=== PATIENT | female | born 1940 | race Caucasian/White ===

== ENCOUNTER → 2018-11-06 | Outpatient (CLI) | payer MEDICARE, OTHER ==
[2018-11-06 14:56] LABS: HCT 44.2 % (34.0-46.0); HGB 15.1 gm/dL (11.4-16.0); MCH 32.5 pg (25.0-35.0); MCHC 34.2 g/dL (31.0-37.0); Mean Platelet Volume 7.6; Platelet Count 248 k/uL (150-450); RBC 4.65 m/uL (3.80-5.40); RDW 14.5 % (11.5-15.5); WBC 7.4 k/uL (3.8-10.6)
[2018-11-06 14:57] LABS: Appearance,Urine Clear (Clear); Bacteria,Urine Occasional /hpf; Bilirubin,Urine Negative (Negative); Blood,Urine Negative (Negative); Color,Urine Yellow; Glucose,Urine (UA) Negative (Negative); Ketones,Urine Negative (Negative); Leukocyte Esterase,Urine Large (Negative); Mucus,Urine Rare /hpf; Nitrite,Urine Positive (Negative); Protein,Urine Negative (Negative); RBC,Urine 1 /hpf (0-5); Specific Gravity,Urine 1.008 (1.001-1.035); Squamous Epithelial Cell,Urine <1 /hpf (0-4); Urobilinogen,Urine <2.0 mg/dL (<2.0); WBC,Urine 15 /hpf (0-5)
[2018-11-06 15:03] LABS: INR 0.9 (<1.2); Partial Thromboplastin Time 23.3 sec (22.0-30.0)
[2018-11-06 15:07] LABS: ALT 21 U/L (9-52); AST 23 U/L (14-36); African American GFR (CKD) >90 (>60 ml/min/1.73 sqM); Alkaline Phosphatase 147 U/L (38-126); Anion Gap 8 mmol/L; Blood Urea Nitrogen 18 mg/dL (7-17); Calcium 9.1 mg/dL (8.4-10.2); Carbon Dioxide 32 mmol/L (22-30); Chloride 99 mmol/L (98-107); Glucose 138 mg/dL (74-99); Non-African American GFR(CKD) 84 (>60 ml/min/1.73 sqM); Potassium 3.9 mmol/L (3.5-5.1); Sodium 139 mmol/L (137-145); Total Bilirubin 0.3 mg/dL (0.2-1.3); Total Protein 6.9 g/dL (6.3-8.2)
== END | disposition home or self-care (01) ==
LOC: LABPAT 13:36
PROVIDERS: ATTEND Orthopaedic Surgery
DX: Z01.812 Encounter for preprocedural laboratory examination (principal); Z79.01 Long term (current) use of anticoagulants
CPT/HCPCS: 36415; 80053; 81001; 85027; 85610; 85730; 86850; 86900; 86901; 87070

== ENCOUNTER 2018-11-17 05:34 | Inpatient (IN) | payer MEDICARE, OTHER ==
[2018-11-11 13:27] VITALS: BMI 33.6
[~2018-11-17 05:34] MED LIST: ACETAMINOPHEN TAB 500 MG TAB PO ONE; DEXAMETHASONE SOD PHOSPHATE 10 MG/ML 1 ML VIAL IV ONE; GABAPENTIN 300 MG CAP PO ONE; LIDOCAINE 1% 20 ML VIAL (10MG/ML) FOR IV START INTRADERMA PRN; MELOXICAM 7.5 MG TAB PO ONE; MIDAZOLAM 2 MG/2 ML VIAL IV PRN; ONDANSETRON 4 MG/2 ML VIAL IVP ONE; SCOPOLAMINE 1.5MG/72HR PATCH TRANSDERM ONE; TRANEXAMIC ACID 1,000 MG in SODIUM CHLORIDE 0.9% 100 ML IVPB ONE
[2018-11-17] MEDS ORDERED: ROPIVACAINE 246.25 MG, EPINEPHrine 0.5 MG, KETOROLAC 30 MG, cloNIDine HCL/PF 80 MCG, WA... MISCELLANE ONE ×10 (06:00→06:07)
[2018-11-17] MEDS: LACTATED RINGERS 1,000 ML IV SCH (06:12)
[2018-11-17] MEDS ORDERED: DIAZEPAM 5 MG TAB PO PRN (06:53)
[2018-11-17] MEDS ORDERED: ONDANSETRON 4 MG/2 ML VIAL IVP PRN (06:53)
[2018-11-17] MEDS ORDERED: MAGNESIUM HYDROXIDE 2,400 MG/10 ML CUP PO PRN (06:53)
[2018-11-17] MEDS ORDERED: HYDROmorphone 0.5 MG/0.5 ML SYRINGE IVP PRN ×3 (06:53)
[2018-11-17] MEDS ORDERED: NALOXONE 0.4 MG/ML 1 ML VIAL IV PRN (06:53)
[2018-11-17] MEDS ORDERED: hydrOXYzine PAMOATE 25 MG CAP PO PRN (06:53)
[2018-11-17] MEDS ORDERED: HYDROcodone/APAP 5-325MG 1 EACH TAB PO PRN (06:53)
[2018-11-17] MEDS ORDERED: SODIUM CHLORIDE 0.9% IRRIG 1,000 ML BTL IRRIGATION ONE (06:54)
[2018-11-17] MEDS ORDERED: SODIUM CHLORIDE 0.9% 100 ML BAG ONE (06:54)
[2018-11-17] MEDS ORDERED: MIDAZOLAM 2 MG/2 ML VIAL ONE (06:54)
[2018-11-17] MEDS ORDERED: HEPARIN SODIUM,PORCINE 10,000 UNIT/ML 1 ML VIAL ONE (06:54)
[2018-11-17] MEDS ORDERED: TRANEXAMIC ACID 1,000 MG/10 ML VIAL ONE (06:54)
[2018-11-17] MEDS ORDERED: PROPOFOL 10 MG/ML 20 ML VIAL IV ONE (06:54)
[2018-11-17] MEDS ORDERED: diphenhydrAMINE 50 MG/ML 1 ML VIAL ONE (06:54)
[2018-11-17] MEDS ORDERED: PHENYLEPHRINE-0.9% NACL SYG 1 MG/10 ML SYRINGE ONE (06:54)
[2018-11-17] MEDS ORDERED: ceFAZolin 3,000 MG in SODIUM CHLORIDE 0.9% IRRIGATIO 3,000 ML IRRIGATION ONE (06:59)
--- NOTE | 2018-11-17 08:36 | P.OP ---
Date of Procedure: 11/17/18 Preoperative Diagnosis: Severe osteoarthritis left hip Postoperative Diagnosis: Severe osteoarthritis left hip Procedure(s) Performed: Left total hip arthroplasty with a direct anterior approach Implants: Fuentes and nephew Polarstem size 2 standard Fuentes & Nephew R3, 3 hole acetabular shell, 48 mm Fuentes & Nephew reflection 6.5 mm cancellus screw, 20 mm 2 Fuentes & Nephew R3, XLPE 20 acetabular liner Fuentes & Nephew Oxinium femoral head 32 m, +0 All components were press-fit. The articulation is Oxinium on polyethylene. Anesthesia: spinal Surgeon: Judson Duncan Toe Laster #1: Radha Donis Estimated Blood Loss (ml): 150 (67 mL returned with Cell Saver) Pathology: other (Femoral head) Condition: stable Disposition: PACU Indications for Procedure: After failure of conservative treatment we discussed the surgical and nonsurgical treatment options at length. Patient wishes to proceed with a total hip arthroplasty with a direct anterior approach. Complications specific to this procedure were discussed at length, including but not limited to infection, leg length discrepancy, dislocation, and nerve injury. Patient is aware of all these complications and informed consent was obtained Operative Findings: The operative findings are consistent with severe osteoarthritis of the left hip Description of Procedure: Patient was seen and evaluated in the preoperative area, consent was reviewed, and the surgical site was marked with a skin marker. Patient was then brought to the operating room and given prophylactic antibiotics intravenously. 1 g of Tranexamic acid was also given. A spinal anesthetic was administered by the anesthesia department. The patient was then placed on the Mcgill table with the bony prominences well-padded. The hip area was then prepped and draped in usual sterile fashion. A universal timeout was then performed, which confirmed the patient's name, surgical site, ALLERGIES, and procedure being performed. Next the incision site was located at 1 cm distal and 1 cm lateral to the anterior superior iliac spine. The skin and subcutaneous tissues were sharply incised. Incision was carefully dissected down to the fascia overlying the tensor fascia sathya muscle. This fascia was then incised in line with the incision. Next, using blunt finger dissection, the tensor fascia sathya muscle was dissected off its investing fascia. The muscle was then carefully retracted laterally with a cobra retractor over the lateral neck of the femur. Next, the circumflex vessels were identified and cauterized using the AquaMantis device. The anterior hip capsule was then exposed. The capsule was then opened and an inverted T fashion. Cobra retractors were then placed intracapsularly. The proximal femur was then visu alized. The femoral neck was then osteotomized appropriate level above the lesser trochanter. Small amount of traction was placed with the Mcgill table. A small wedge of bone was then removed from the remaining femoral head. Next, using a corkscrew femoral head was easily removed from the acetabulum. On gross visual inspection, the femoral head had complete loss of articular cartilage in multip le periarticular osteophytes. Attention was then turned to the acetabulum. the acetabulum was exposed and any remaining labrum was excised. Sequential reaming of the acetabulum was performed using fluoroscopic guidance. When the appropriate size was reached, a trial was then placed. The position and fit of the trial was checked with fluoroscopy. The trial was then removed. Then, using fluoroscopic guidance, the final implant was impacted at 20 of anteversion and 40 of abduction, and fully seated in the acetabulum. 2 screws were then placed in the acetabulum. Again fluoroscopy was used to check position of the screws. Next, the liner was then impacted, with a 20 elevated liner located in the anterior superior quadrant. Component locking was confirmed. Attention was then directed to the femur. With the aid of the Mcgill table, the femur was externally rotated to approximately 130, extended, and abducted under the opposite leg. A side hook was then placed under the proximal femur, and the side hook elevator was used to elevate the proximal femur. Retractors were then placed. A capsular release was performed, as well as a release of the conjoined tendon, which afforded excellent visualization of the proximal femur. Next, a box osteotome was used to lateralize the proximal femur. A regional merchandising manager was then used to locate the femoral canal. Sequential broaching was then performed with appropriate size which afforded excellent fixation in the proximal femur. A trial was then placed with appropriate head and neck, and the hip was gently reduced with the aid of the Mcgill table. Fluoroscopy was then used to check position of the components, as well as to ensure equal leg lengths. The hip was then gently dislocated and the trials were then removed. Final implants were then impacted and the hip was again reduced. Final fluoroscopic x-rays confirmed that the components were in anatomic position, as well as equal leg lengths. The hip was also taken through range of motion, and found to be stable. The hip was then copiously irrigated with antibiotic solution with pulsatile lavage. The hip was then irrigated with Irrisept solution. The soft tissues were then injected with a ropivacaine solution, which consisted of 246.25 mg of ropivacaine, 0.5 mg of epinephrine, 30 mg of Toradol, 80 g of clonidine, and 48.45 mL of sterile water, for a total of 100 mL of fluid injected. A second dose of 1 g of Tranexamic acid was also given. the fascia was then closed with 2-0 strata fix suture. The subcutaneous tissue was closed with 3-0 Vicryl. The subcuticular tissue was closed with 3-0 strata fix suture. The skin was then closed with Dermabond glue and a sterile silver dressing. The patient was then transferred to the recovery room in stable condition. The assistant plant control operator STERLING Stallworth was required due to the complexity of surgery, and the need for skilled rn surgical pcu for positioning, draping, exposure, retraction, and closure of the wound.
--- NOTE | 2018-11-17 09:17 | XR ---
EXAMINATION TYPE: XR Hip Limited LT DATE OF EXAM: 11/17/2018 COMPARISON: NONE HISTORY: 78-year-old female status post hip surgery, assess surgical alignment TECHNIQUE: Portable supine AP view FINDINGS: Image shows placement of left total hip arthroplasty. Both acetabular cup and femoral stem components of the prosthesis are well seated without periprosthetic fracture. Alignment grossly anatomic. Scatt ered soft tissue air related to recent operation. IMPRESSION: Uncomplicated postoperative appearance left total hip arthroplasty.
[2018-11-17] MEDS: HYDROmorphone 0.5 MG/0.5 ML SYRINGE IVP PRN ×2 (10:00→11:15)
[2018-11-17] MEDS ORDERED: LACTATED RINGERS 1,000 ML IV ONE ×2 (10:17)
[2018-11-17] MEDS: SODIUM CHLORIDE 0.9% 1,000 ML IV SCH ×2 (11:51→20:02)
--- NOTE | 2018-11-17 12:05 | FL ---
EXAMINATION TYPE: FL guidance operating room, XR Hip Limited LT DATE OF EXAM: 11/17/2018 CLINICAL HISTORY: Left anterior hip replacement TECHNIQUE: Fluoroscopy. COMPARISON: None. FINDINGS: Fluoroscopic guidance was provided during procedure performed by Dr. Duncan. A total of 37 seconds of fluoroscopic time was utilized during the procedure and 2 spot images was acquired dur ing a left hip arthroplasty. IMPRESSION: As Above.
[2018-11-17] MEDS: HYDROcodone/APAP 5-325MG 1 EACH TAB PO PRN ×2 (14:09→23:24)
[2018-11-17] MEDS ORDERED: ACETAMINOPHEN TAB 500 MG TAB PO PRN (18:33)
[2018-11-17] MEDS: ASPIRIN 325 MG TAB PO SCH (20:02)
[2018-11-17] MEDS ORDERED: SENNOSIDES-DOCUSATE SODIUM 1 EACH TAB PO SCH (21:00)
--- NOTE | 2018-11-17 21:35 | CONS ---
CONSULTATION CHIEF COMPLAINT: A 78-year-old white female, status post hip surgery. She has history of hypertension. She is having no chest pain, shortness of breath, sitting up in the chair, having no acute respiratory troubles. No chest pain. MEDICATIONS: Reviewed. REVIEW OF SYSTEM: 14-point review of systems negative except for mentioned in HPI. She has 0 to 1/10 pain in the right hip. PHYSICAL EXAMINATION: Temperature 98.7, pulse 70s to 80s, respiratory rate 16 to 18, blood pressure 98 to 125 over 70s to 80s. O2 94 to 96% on 2 L on room air. Cardiovascular S1, S2. LUNGS: Clear. GI soft. Hematology negative Homans. Psych fair mood and affect. NEUROLOGIC: Alert and oriented x3. INTEGUMENT: No rashes. ENDOCRINE BMI is over 30. ASSESSMENT: 1. Status post total hip replacement. 2. History of hypertension, overweight. Please see further orders. Home medications have been reordered. Call if you have any further orders. The patient appears to be stable from medical standpoint at this time. MMODL / IJN: [id number] /
[2018-11-18] MEDS: LACTATED RINGERS 1,000 ML IV SCH (00:28)
[2018-11-18] MEDS: ASPIRIN 325 MG TAB PO SCH (07:25)
[2018-11-18 07:43] LABS: Basophils % (A) 0 %; Eosinophils # (A) 0.1 k/uL (0-0.7); Eosinophils % (A) 1 %; HCT 34.6 % (34.0-46.0); Lymphocytes # (A) 1.2 k/uL (1.0-4.8); Lymphocytes % (A) 20 %; MCH 32.6 pg (25.0-35.0); MCHC 34.8 g/dL (31.0-37.0); MCV 93.9 fL (80.0-100.0); Mean Platelet Volume 7.6; Monocytes # (A) 0.4 k/uL (0-1.0); Monocytes % (A) 7 %; Neutrophils # (A) 4.1 k/uL (1.3-7.7); Neutrophils % (A) 71 %; Platelet Count 195 k/uL (150-450); RBC 3.68 m/uL (3.80-5.40); RDW 14.3 % (11.5-15.5); WBC 5.9 k/uL (3.8-10.6)
--- NOTE | 2018-11-18 08:38 | P.DS ---
Providers Date of admission: 11/17/18 05:34 Expected date of discharge: 11/18/18 Attending physician: Judson Duncan Consults: 11/17/18 06:53 Consult Physician Routine Consulting Provider: Uday Adams Consult Reason/Comments: medical management Do you want consulting provider notified?: Yes Primary care physician: Shaun Bazzi - Discharge Diagnosis(es) (1) Osteoarthritis of left hip Current Visit: Yes Status: Acute (2) Status post total hip replacement, left Current Visit: Yes Status: Acute Hospital Course: This is a 78-year-old female with known history of degenerative arthritis of the left hip. The patient presents for evaluation. After discussion and consideration patient elects to proceed with total hip arthroplasty. The patient is seen preoperatively by Dr. Duncan and medically cleared for surgery by their primary care physician. Patient is admitted to [facility] on 11/17/2018 for total hip arthroplasty. The procedures performed without complication or sequelae. The patient is doing well postoperatively. Labs and vital signs are stable on day of discharge. On day of discharge patient's hip incision is healing well. There is minimal erythema. There is no drainage noted at this time. There is minimal soft tissue swelling to the hip and thigh. Patient has full foot and ankle motion without difficulty or pain. Calf is soft and nontender to palpation. N eurovascular status to the left lower extremity is intact. Patient is discharged home in good condition. Opioid start talking form is reviewed and signed at patient bedside. Please see med rec for accurate list of home medications. Plan - Discharge Summary Discharge Rx Participant: Yes New Discharge Prescriptions: New Aspirin 325 mg PO BID #60 tab HYDROcodone/APAP 5-325MG [[place]esilla 5-325] 1 - 2 tab PO Q6HR PRN #56 tab PRN Reason: Pain Sennosides [Senokot] 1 tab PO BID #60 tablet No Action Multivitamins, Thera [Multivitamin (formulary)] 1 tab PO DAILY Metoprolol Succinate [Toprol Xl] 50 mg PO W/SUPPER Metoprolol Succinate [Toprol XL] 25 mg PO QAM Hydrochlorothiazide [Hydrodiuril] 25 mg PO DAILY Calcium Carbonate [Calcium] 600 mg PO DAILY Mv Eye Vitamin 1 tab PO DAILY Eo Vitamin 4 tab PO DAILY Acetaminophen [Tylenol Extra Strength] 500 mg PO DAILY PRN PRN Reason: Pain Nitrofurantoin Macrocrystal [Macrodantin] 100 mg PO BID Discharge Medication List Acetaminophen [Tylenol Extra Strength] 500 mg PO DAILY PRN 11/11/18 [History] Calcium Carbonate [Calcium] 600 mg PO DAILY 11/11/18 [History] Eo Vitamin 4 tab PO DAILY 11/11/18 [History] Hydrochlorothiazide [Hydrodiuril] 25 mg PO DAILY 11/11/18 [History] Metoprolol Succinate [Toprol XL] 25 mg PO QAM 11/11/18 [History] Metoprolol Succinate [Toprol Xl] 50 mg PO W/SUPPER 11/11/18 [History] Multivitamins, Thera [Multivitamin (formulary)] 1 tab PO DAILY 11/11/18 [H istory] Mv Eye Vitamin 1 tab PO DAILY 11/11/18 [History] Nitrofurantoin Macrocrystal [Macrodantin] 100 mg PO BID 11/11/18 [History] Aspirin 325 mg PO BID #60 tab 11/18/18 [Rx] HYDROcodone/APAP 5-325MG [Mesilla 5-325] 1 - 2 tab PO Q6HR PRN #56 tab 11/18/18 [Rx] Sennosides [Senokot] 1 tab PO BID #60 tablet 11/18/18 [Rx] Follow up Appointment(s)/Referral(s): Judson Duncan DO [Doctor of Osteopathic Medicine] - 2 Weeks Activity/Diet/Wound Care/Special Instructions: Weightbearing as tolerated with walker. Leave dressing intact. Dressing may be removed by home care nurse or by patient in 10 days. May shower with dressing on. Recommend use of compression stockings daily for at least 2 weeks during the day to help prevent swelling and blood clots. May remove at night before sleeping. Please follow-up with [facility] in 2 weeks and call with any questions or concerns, . Discharge Disposition: HOME WITH HOME HEALTH SERVICES
[2018-11-18 08:45] VITALS: BP 118/75; PULSE 73; RESP 16; TEMP 99
[2018-11-18] MEDS ORDERED: MULTIVITAMINS, THERA 1 EACH TAB PO SCH (09:00)
[2018-11-18] MEDS ORDERED: METOPROLOL SUCCINATE (ER) 25 MG TAB.ER.24H PO SCH (09:00)
[2018-11-18] MEDS ORDERED: HYDROCHLOROTHIAZIDE 25 MG TAB PO SCH (09:00)
[2018-11-18] MEDS ORDERED: [UNRECOGNIZED DRUG - OTHER] PO SCH (09:00)
[2018-11-18] MEDS ORDERED: CALCIUM CARBONATE 500 MG CHEWABLE PO SCH (09:00)
[2018-11-18] MEDS ORDERED: MELOXICAM 7.5 MG TAB PO SCH (09:00)
[2018-11-18] MEDS ORDERED: [UNRECOGNIZED DRUG - OTHER] PO SCH (09:00)
--- NOTE | 2018-11-19 21:19 | P.PN ---
Subjective Progress Note Date: 11/18/18 This 78-year-old female status post total left hip replacement. Tolerated procedure well. Good diet intake with no nausea vomiting or diarrhea. Passing flatus, no bowel movement. Pain controlled. Denies chest pain, palpitations or shortness of breath. Denies lightheadedness dizziness or focal deficits. Vital signs stable. Objective - Vital Signs Vital signs: Vital Signs Temp 99.0 F 11/18/18 07:00 Pulse 73 11/18/18 07:00 Resp 16 11/18/18 07:00 BP 118/75 11/18/18 07:00 Pulse Ox 95 11/18/18 07:00 Intake & Output 11/17/18 11/18/18 11/18/18 18:59 06:59 18:59 Intake Total 640 400 Output Total 450 Balance 190 400 Intake: IV 400 Oral 240 400 Output: Urine 300 Estimated Blood Loss 150 Other: # Voids 1 - Exam PHYSICAL EXAM: VITAL SIGNS: As above GENERAL: Sitting up in bed, no acute distress HEENT: Conjunctivae normal. eyes normal. Oral mucosa moist NECK: No JVD. No thyroid enlargement. No LNs CARDIOVASCULAR: S1, S2 regular.. No murmur RESPIRATION: Breath sounds diminished in the bases. No rhonchi or crackles. No bronchial breathing. ABDOMEN: Soft, nontender . No guarding. no masses palpable. No ascites, No hepatosplenomegaly.Bowel sounds heard. PSYCHIATRY: Alert and oriented X3, mood and affect normal. NERVOUS SYSTEM: Cranial N 2-12 grossly normal. Moves all 4 limbs. Diffuse weakness, No focal deficits. Strength and sensation grossly intact.. Skin: no lesions, no rash. Minimal left hip/thigh edema, calf nontender, positive pulses, - Labs CBC & Chem 7: 11/18/18 06:58 Labs: Abnormal Lab Results - Last 24 Hours (Table) 11/18/18 Range/Units 06:58 RBC 3.68 L (3.80-5.40) m/uL Assessment and Plan Assessment: -Status post total left hip replacement secondary to degenerative osteoarthritis -Hypertension -Obesity, BMI 34 -Gastroesophageal reflux disease -History of nicotine dependence Plan: Continue current medication regime ,monitoring and symptomatic treatment. Pain management/anticoagulation as per orthopedic surgery. PT/OT. Discharge planning in progress as per primary. Follow-up with PCP in one week. Further recommendations to follow. Thank you for the consult. The impression and plan of care has been dictated as directed. : I performed a history and examination of this patient, discussed the same with the dictator. I agree with the dictator's note ,documented as a scribe. Any additional findings or plans will be noted.
== END 2018-11-18 12:05 | disposition home health service (06) | DRG 470 ==
LOC: 2ORMAIN 05:34 → 4SSUR 11:10
PROVIDERS: ADMIT Orthopaedic Surgery; ATTEND Orthopaedic Surgery
PROC: 30233N0 Transfusion of Autologous Red Blood Cells into Peripheral Vein, Percutaneous Approach (ICD-10-PCS; 2018-11-17)
PROC: 0SRB06A Replacement of Left Hip Joint with Oxidized Zirconium on Polyethylene Synthetic Substitute, Uncemented, Open Approach (ICD-10-PCS; principal; 2018-11-17 07:00)
DX: M16.12 Unilateral primary osteoarthritis, left hip (principal); I10 Essential (primary) hypertension; E66.3 Overweight; H81.13 Benign paroxysmal vertigo, bilateral; H35.3130 Nonexudative age-related macular degeneration, bilateral, stage unspecified; H40.1131 Primary open-angle glaucoma, bilateral, mild stage; K57.30 Diverticulosis of large intestine without perforation or abscess without bleeding; R73.9 Hyperglycemia, unspecified; N39.3 Stress incontinence (female) (male); Z90.710 Acquired absence of both cervix and uterus; Z90.49 Acquired absence of other specified parts of digestive tract; Z79.82 Long term (current) use of aspirin; Z79.899 Other long term (current) drug therapy; Z86.010 Personal history of colon polyps
CPT/HCPCS: 73501; 85025; 86850; 86891; 86900; 86901; 88300

== ENCOUNTER → 2021-10-22 | Outpatient (CLI) | payer MEDICARE, OTHER ==
[2021-10-22 14:06] LABS: Partial Thromboplastin Time 22.9 sec (22.0-30.0); Prothrombin Time 10.5 sec (9.0-12.0)
[2021-10-22 18:27] LABS: HCT 42.9 % (37.2-46.3); MCH 32.2 pg (27.0-32.0); MCV 92.1 fL (80.0-97.0); Mean Platelet Volume 10.3 fL (9.5-12.2); NRBC Per 100 WBC 0 /100 WBCS (0.0-0.0); Platelet Count 284 X 10*3/uL (140-440); RBC 4.66 X 10*6/uL (4.10-5.20); RDW 12.5 % (11.5-14.5); WBC 4.51 X 10*3/uL (4.50-10.00)
[2021-10-22 18:57] LABS: African American GFR (CKD) 99.8 (60.0-200.0); Albumin 4.2 g/dL (3.8-4.9); Albumin/Globulin Ratio 1.5 (1.60-3.17); Anion Gap 12.5 mmol/L (10.00-18.00); BUN/Creat Ratio 20.67 Ratio (12.00-20.00); Blood Urea Nitrogen 12.4 mg/dL (9.0-27.0); Calcium 9.9 mg/dL (8.7-10.3); Carbon Dioxide 27.5 mmol/L (20.0-27.5); Globulin 2.8 g/dL (1.6-3.3); Non-African American GFR(CKD) 86.1 (60.0-200.0); Potassium 3.7 mmol/L (3.5-5.5); Total Bilirubin 0.4 mg/dL (0.30-1.20)
[2021-10-22 19:16] LABS: Appearance,Urine Clear (Clear); Bilirubin,Urine Negative (Negative); Blood,Urine Negative (Negative); Color,Urine Yellow (Yellow); Ketones,Urine Negative (Negative); Nitrite,Urine Negative (Negative); PH, Urine 7.5 (5.0-8.0); Urobilinogen,Urine 0.2 (0.2,1.0)
[2021-10-22 19:24] LABS: Bacteria,Urine Trace /HPF (None Seen)
== END | disposition home or self-care (01) ==
LOC: LABPAT 12:04
PROVIDERS: ATTEND Orthopaedic Surgery
DX: Z01.812 Encounter for preprocedural laboratory examination (principal); M17.12 Unilateral primary osteoarthritis, left knee
CPT/HCPCS: 80053; 81001; 85027; 85610; 85730; 87070

== ENCOUNTER 2021-11-05 05:35 | Day surgery (SDC) | payer MEDICARE, OTHER ==
[2021-11-01 11:32] VITALS: BMI 33.6
[~2021-11-05 05:35] MED LIST changes: -ACETAMINOPHEN TAB 500 MG TAB PO ONE; +ACETAMINOPHEN TAB 500 MG TAB PO PRN; -DEXAMETHASONE SOD PHOSPHATE 10 MG/ML 1 ML VIAL IV ONE; -GABAPENTIN 300 MG CAP PO ONE; +GABAPENTIN 300 MG CAP PO PRN; -LIDOCAINE 1% 20 ML VIAL (10MG/ML) FOR IV START INTRADERMA PRN; -MELOXICAM 7.5 MG TAB PO ONE; +MELOXICAM 7.5 MG TAB PO PRN; -MIDAZOLAM 2 MG/2 ML VIAL IV PRN; -ONDANSETRON 4 MG/2 ML VIAL IVP ONE; -SCOPOLAMINE 1.5MG/72HR PATCH TRANSDERM ONE; -TRANEXAMIC ACID 1,000 MG in SODIUM CHLORIDE 0.9% 100 ML IVPB ONE; +TRANEXAMIC ACID IN NACL,ISO-OS 1,000 MG in SALINE 1 100ML.BAG IVPB PRN
[2021-11-05] MEDS ORDERED: HYDROmorphone 0.5 MG/0.5 ML SYRINGE IVP PRN ×4 (05:47→08:46)
[2021-11-05] MEDS ORDERED: ONDANSETRON 4 MG/2 ML VIAL IVP ONE (05:47)
[2021-11-05] MEDS ORDERED: DEXAMETHASONE SOD PHOSPHATE 4 MG/ML 1 ML VIAL IV ONE (05:47)
[2021-11-05] MEDS: LACTATED RINGERS 1,000 ML IV SCH (06:15)
[2021-11-05] MEDS ORDERED: LIDOCAINE 1% (10MG/ML) FOR IV START INTRADERMA ONE (06:15)
[2021-11-05] MEDS ORDERED: MIDAZOLAM 2 MG/2 ML VIAL IV ONE (06:38)
[2021-11-05] MEDS ORDERED: fentaNYL (PF) 50 MCG/ML 2 ML AMP IV ONE (06:38)
[2021-11-05] MEDS ORDERED: ceFAZolin 1,000 MG in SODIUM CHLORIDE 0.9% 1,000 ML IRRIGATION ONE (07:04)
--- NOTE | 2021-11-05 08:20 | P.OP ---
Date of Procedure: 11/05/21 Preoperative Diagnosis: Severe Osteoarthritis left knee Postoperative Diagnosis: Severe osteoarthritis left knee Procedure(s) Performed: Left total knee arthroplasty Implants: Fuentes & Nephew Journey II CR Oxinium cruciate retaining femoral component size 4, left Fuentes & Nephew Journey nonporous tibial baseplate size 4, left Fuentes & Nephew Journey II, XLPE Deep Dished articular insert, size 13 mm, Size 3-4, left Fuentes & Nephew Journey Danika II resurfacing patellar component, oval, 32 mm All components were cemented using Palacos R bone cement The articulation is Oxinium on polyethylene Anesthesia: spinal Surgeon: Judson Duncan Charge Entry Specialist #1: Radha Donis Estimated Blood Loss (ml): 30 Pathology: other (Bone and cartilage) Condition: stable Disposition: PACU Indications for Procedure: After failure of conservative treatment we discussed the surgical and nonsurgical treatment options at length. Patient wishes to proceed with a total knee arthroplasty. Complications specific to this procedure were discussed at length, including but not limited to infection, bleeding, stiffness, and nerve injury. Covid-19 was also discussed at length with the patient, and they are aware of the current policies and procedures. The patient was given the option of delaying surgery, but they elect to proceed knowing these risks. Patient is aware of all these complications and informed consent was obtained Operative Findings: The operative findings are consistent with severe osteoarthritis of the left knee Description of Procedure: Patient was seen in the preoperative area and the consent was reviewed and the operative site was marked with a skin marker. The patient verified the procedure and the operative site. An adductor canal pain catheter and an iPACK block was placed by anesthesia in the preoperative area. The patient was then brought to the operating room and given preoperative antibiotics intravenously. A gram of transexamic acid was given intravenously. A spinal anesthetic was administered by the anesthesia department. A tourniquet was placed on the upper thigh and the lower extremity was prepped with chlorhexidine and draped in usual sterile fashion. A universal timeout was then performed which confirmed the patient's name, surgical site, ALLERGIES, and consent. The lower extremity was then exsanguinated and tourniquet was inflated to 250 mmHg. A standard anterior midline approach to the knee was performed. The skin and subcutaneous tissue were sharply dissected down to the patellar tendon. A medial parapatellar arthrotomy was then performed. The knee was then extended, the patellar was everted, and the knee was again flexed. The infra-patellar fat pad was removed in order to enhance exposure. The anterior horns of both menisci were excised, and a release was performed to the posterior medial aspect of the knee. On gross visual inspection, there was complete loss of articular cartilage in the medial and patellofemoral joint spaces. There was also significant cartilage damage in the lateral compartment. There were multiple periarticular osteophytes globally about the knee which were then removed with a Ronguer. The femoral canal was then opened with the 9.5 mm intramedullary drill. The 8 mm intramedullary rachell was then inserted into the femoral canal with the distal femoral cutting guide set for 5 of valgus. The distal femoral cutting block was then pinned in place. The intramedullary rachell was then removed, and the distal femur was then cut. The cutting block was then removed and the cut was checked for symmetry. The resected bone was then measured to confirm the appropriate distal femoral resection. Next, the sizing guide was then placed and set for 3 external rotation based off of the epicondylar axis and Whitesides line. Pins were then placed and the drill holes, and the femur was sized with the sizing stylus. The pins were then removed, and the sizing guide was then removed. The spikes of the femoral block was then placed into the predrilled holes, and malleted into place. Two 45 mm pins were then placed into the fixation holes on the cutting block. An missael wing was then used to ensure there would be no notching with the anterior cut. The anterior condyles were cut without notching. The anterior chord cut was then performed, followed by the posterior cut, posterior chamfer cut, and the anterior chamfer cut. The collateral ligaments were protected during the entire process. The cutting block was then removed. Any remaining bone and osteophytes were removed from the femur with a Ronguer. The femoral canal was plugged with autologous bone. Attention was then directed to the tibia. The remaining ACL was removed with a Ronguer, and the tibia was then gently subluxed forward with a large bent knee retractor. Any remaining menisci were excised. The posterior lateral corner was cauterized in order to coagulate the lateral geniculate artery. The extra medullary tibial cutting guide was then placed, set for the appropriate rotation, slope, and depth of resection. The proximal tibia cutting guide was then pinned in place. Proximal tibia was then cut and sized. The femoral trial was placed. A narrow saw blade was then used to remove the anterior intracondylar femoral bone. The CR notch trial was then placed. The tibial trial was placed with the appropriate-sized insert. The knee was able to fully extend and flex to 130 and was stable throughout all range of motion. The knee was then extended and the patella was everted. Patella was then measured, and then using an osteotomy guide, the patella was cut at the appropriate level. The patella was then measured and drilled and the patella trial was then placed. The knee was then taken through range of motion with the patella trial and the patella tracked normally using the no thumbs technique. The knee was then extended patella trial was then removed and the patella was everted. Knee was then flexed and lug holes were drilled through the femoral trial and the femoral trial was then removed. The tibial was then re-exposed, and the tibial broach guide was then pinned in place after it was set for the appropriate rotation to allow for the most coverage without overhang. The tibia was then reamed and broached. The cut surfaces of bone were then irrigated with pulsatile lavage. The knee was also irrigated with Irrisept solution. The components were then opened, the cement was mixed, and the components were then cemented in place. The cement was allowed to harden with the knee in full extension. After the cemented hardened, the tourniquet was released and hemostasis was obtained. A second gram of transexamic acid was given intravenously. The knee was again irrigated. The knee was again taken through range of motion and found to be stable throughout all range of motion of 0-130, and the patella tracked normally. The fascia was then closed with 0 Vicryl followed by #2 strata fix suture. The subcutaneous tissue was closed with 3-0 Vicryl and 3-0 strata fix. Exofin glue was used for the skin and placed with the knee in flexion. After the glue had dried, and Optafoam silver impregnated dressing was applied. The patient was then transferred to recovery room in stable condition. The fleet administrative assistant STERLING Stallworth was required due the complexity surgery and the need for a skilled surgical technology instructor. She assisted in positioning, draping, retraction, and closure of the wound.
[2021-11-05] MEDS ORDERED: LACTATED RINGERS 1,000 ML IV ONE (08:31)
[2021-11-05] MEDS ORDERED: NA PHOS,M-B/NA PHOS,DI-BA 133 ML ENEMA RECTAL PRN (08:46)
[2021-11-05] MEDS ORDERED: ONDANSETRON 4 MG/2 ML VIAL IVP PRN (08:46)
[2021-11-05] MEDS ORDERED: MAGNESIUM HYDROXIDE 2,400 MG/10 ML CUP PO PRN (08:46)
[2021-11-05] MEDS ORDERED: NALOXONE 0.4 MG/ML 1 ML VIAL IV PRN (08:46)
[2021-11-05] MEDS ORDERED: bisacodyL 10 MG SUPP RECTAL PRN (08:46)
[2021-11-05] MEDS ORDERED: HYDROcodone/APAP 7.5-325MG 1 EACH TAB PO PRN (08:49)
[2021-11-05] MEDS ORDERED: ROPIVACAINE 0.2%-NS ON-Q PUMP 2 MG/ML EACH MISCELLANE ONE (08:53)
--- NOTE | 2021-11-05 09:32 | XR ---
EXAMINATION TYPE: XR knee limited LT DATE OF EXAM: 11/05/2021 9:22 AM INDICATION: Patient age:Female; 81 years old; Reason for study: Evaluation for Postop abnormality and alignment; COMPARISON: None. TECHNIQUE: The Left knee(s) was examined in 2 projections. Frontal, lateral. FINDINGS: Status post left total knee arthroplasty changes with hardware in appropriate alignment a nd intact. No evidence of fracture. Subcutaneous lucencies and lucencies within the joint consistent with surgical changes. IMPRESSION: Status post total knee arthroplasty changes with hardware intact and appropriate alignment. No fractu res identified.
--- NOTE | 2021-11-05 10:00 | P.ANPRN ---
Procedure Note - Anesthesia - Nerve Block Performed Left Adductor Canal Time Out Performed: Yes (06:38) Date of Procedure: 11/05/21 Procedure Start Time: Procedure Stop Time: :48 Location of Patient: PreOp Indication: Acute Post-Operative Pain, Requested by Surgeon (Dr Judson Duncan) Sedation Type: Sedate with meaningful contact maintained Preparation: Sterile Prep, Sterile Dressing Position: Supine Catheter: Indwelling Needle Types: Pajunk Needle Gauge: 21 Ultrasound used to visualize needle placement: Yes Ultrasound used to observe medication spread: Yes Injectate: 0.5% Ropivacaine (see comment for volume) (10cc + 10 PF Normal saline) Blood Aspirated: No Pain Paresthesia on Injection Noted: No Resistance on Injection: Normal Image Stored and Saved: Yes Events: Uneventful and Well Tolerated
--- NOTE | 2021-11-05 10:02 | P.ANPRN ---
Procedure Note - Anesthesia - Nerve Block Performed iPack Time Out Performed: Yes Date of Procedure: 11/05/21 Procedure Start Time: 06:49 Procedure Stop Time: 06:56 Location of Patient: PreOp Indication: Acute Post-Operative Pain, Requested by Surgeon (Dr Judson Duncan) Sedation Type: Sedate with meaningful contact maintained Preparation: Sterile Prep Position: Supine Catheter: None Needle Types: Pajunk Needle Gauge: 21 Ultrasound used to visualize needle placement: Yes Ultrasound used to observe medication spread: Yes Injectate: 0.5% Ropivacaine (see comment for volume) (10cc + 10cc PF Normal saline) Blood Aspirated: No Pain Paresthesia on Injection Noted: No Resistance on Injection: Normal Image Stored and Saved: Yes Events: Uneventful and Well Tolerated
[2021-11-05] MEDS ORDERED: ROPIVACAINE 0.2%-NS ON-Q PUMP 1,090 MG, EMPTY PAIN BALL 1 EACH MISCELLANE PRN (10:15)
[2021-11-05] MEDS ORDERED: ACETAMINOPHEN TAB 500 MG TAB PO PRN (16:09)
[2021-11-05] MEDS: SODIUM CHLORIDE 0.9% 1,000 ML IV SCH ×2 (16:38→23:30)
[2021-11-05] MEDS: HYDROcodone/APAP 7.5-325MG 1 EACH TAB PO PRN (18:49)
[2021-11-05] MEDS ORDERED: SENNOSIDES-DOCUSATE SODIUM 1 EACH TAB PO SCH (21:00)
[2021-11-05] MEDS: ASPIRIN 325 MG TAB PO SCH (21:59)
[2021-11-05] MEDS: METOPROLOL SUCCINATE (ER) 50 MG TAB.ER.24H PO SCH (21:59)
[2021-11-05] MEDS: BRIMONIDINE TARTRATE 0.2% DROPS 5 ML BTL RIGHT EYE SCH (23:30)
--- NOTE | 2021-11-06 01:06 | P.CONS ---
History of Present Illness - Reason for Consult Consult date: 11/05/21 Medical management - Chief Complaint Left total knee arthroplasty - History of Present Illness Patient is a 81-year-old female with a known history of hypertension, osteoarthritis, GERD, varicose veins, history of diverticulitis and previous history of smoking, macular degeneration admitted to hospital for elective left total knee arthroplasty. Patient tolerated the procedure very well. Pain is controlled with nerve block. Denies any complaints of chest pain or shortness with. No headache or dizziness or lightheadedness. No fever no chills. On admission blood pressure was elevated to 192/93. Medicine service was consulted for evaluation. Review of Systems Constitutional: Patient denies any fever or chills . no Generalized weakness. Abdomen: Patient denied any nausea or vomiting or abd. pain Cardiovascular: Patient denies any chest pain or short of breath no palpitations. Respiratory: patient denied any cough is from production. No shortness of jasvir ath Neurologic: Patient denied any numbness or tingling headache. Musculoskeletal: Patient denies any complaints of joint swelling or deformity. Skin: Negative Psychiatric: Negative Endocrine: No heat or cold intolerance. No recent weight gain. Genitourinary: No dysuria or hematuria. All other 14 point ROS negative except the above Past Medical History Past Medical History: Eye Disorder, GERD/Reflux, Hypertension, Osteoarthritis (OA) Additional Past Medical History / Comment(s): varicose veins, macular degeneration(wet rt eye, dry left eye), lupus, UTI, diverticulitis History of Any Multi-Drug Resistant Organisms: None Reported Past Surgical History: Appendectomy, Hysterectomy, Joint Replacement, Tonsillectomy Additional Past Surgical History / Comment(s): juventino cataracts,lt total hip, Left TKA (11/05/21). Past Anesthesia/Blood Transfusion Reactions: No Reported Reaction Additional Past Anesthesia/Blood Transfusion Reaction / Comm: no hx blood transfusion Past Psychological History: No Psychological Hx Reported Smoking Status: Former smoker Past Alcohol Use History: Occasional Additional Past Alcohol Use History / Comment(s): quit smoking 40 yrs ago, Past Drug Use History: None Reported - Past Family History Son(s) Family Medical History: Cancer Additional Family Medical History / Comment(s): testicular Sister(s) Family Medical History: Deep Vein Thrombosis (DVT) Medications and Allergies Home Medications Medication Instructions Recorded Confirmed Type Acetaminophen [Tylenol Extra 500 mg PO DAILY PRN 11/11/18 11/01/21 History Strength] Calcium Carbonate [Calcium] 600 mg PO DAILY 11/11/18 11/01/21 History Metoprolol Succinate [Toprol Xl] 50 mg PO BID 11/11/18 11/01/21 History Multivitamins, Thera [Multivitamin 1 tab PO DAILY 11/11/18 11/01/21 History (formulary)] hydroCHLOROthiazide [Hydrodiuril] 50 mg PO DAILY 11/11/18 11/01/21 History Aspirin 81 mg PO DAILY 11/01/21 11/01/21 History Brimonidine Tartrate [Alphagan P 1 drop RIGHT EYE TID 11/01/21 11/01/21 History 0.2% Ophth Soln] Eo3 Eye Supplement 3 cap PO DAILY 11/01/21 11/01/21 History Aspirin 325 mg PO BID #60 tab 11/05/21 Rx HYDROcodone/APAP 7.5-325MG [[place] 1 - 2 tab PO Q6H PRN #32 tab 11/05/21 Rx 7.5-325] Sennosides [Senokot] 2 tab PO DAILY PRN #60 tablet 11/05/21 Rx Allergies Allergy/AdvReac Type Severity Reaction Status Date / Time No Known Allergies Allergy Verified 11/01/21 11:16 Physical Exam Vitals: Vital Signs Temp Pulse Resp BP BP Pulse Ox 11/05/21 14:56 98.1 F 95 18 153/89 99 11/05/21 14:30 79 16 135/60 95 11/05/21 13:30 85 16 132/65 95 11/05/21 12:30 84 16 180/86 95 11/05/21 11:30 75 16 120/79 95 11/05/21 11:00 74 16 136/75 95 11/05/21 10:30 80 16 126/63 93 L 11/05/21 10:15 74 16 144/74 97 11/05/21 10:00 73 17 141/69 94 L 11/05/21 09:45 76 17 153/79 94 L 11/05/21 09:30 73 17 153/76 94 L 11/05/21 09:13 71 17 150/71 94 L 11/05/21 08:58 68 17 133/86 95 11/05/21 08:43 97.9 F 70 15 143/65 95 11/05/21 06:55 75 16 154/82 99 11/05/21 06:04 97.4 F L 79 16 192/93 98 Intake and Output 11/05/21 11/05/21 11/05/21 06:59 14:59 22:59 Intake Total 200 1151 Output Total 30 Balance 200 1121 Intake: IV 200 1151 Output: Estimated Blood Loss 30 Other: # Voids 1 Weight 88.5 kg 88.5 kg PHYSICAL EXAMINATION: Patient is lying in the bed comfortably, no acute distress, awake alert and oriented.. HEENT: Normocephalic. Neck is supple. Pupils reactive. Nostrils clear. Oral cavity is moist. Neck reveals no JVD, carotid bruits, or thyromegaly. CHEST EXAMINATION: Trachea is central. Symmetrical expansion. Lung gross clear to auscultation and percussion. CARDIAC: Normal S1, S2 with no gallops. No murmurs ABDOMEN: Soft. Bowel sounds present. Nontender. No organomegaly. No abdominal bruits. Extremities: reveal no edema. No clubbing or cyanosis Neurologically awake, alert, oriented x3 with well-coordinated movements. No focal deficits noted Skin: No rash or skin lesions. Psychiatric: Coperative. Nonsuicidal, Musculoskeletal: No joint swelling or deformity. Normal range of motion. Assessment and Plan Assessment: Status post left total knee arthroplasty postoperative day 0 Uncontrolled hypertension on admission. Controlled now Osteoarthritis GERD Macular degeneration History of lupus History of diverticulitis Previous history of smoking GI and DVT prophylaxis Plan: Patient is being continued on pain management as per anesthesia recommendations. Encourage incentive spirometry and ambulation. DVT prophylaxis. Continue with metoprolol and hold hydrochlorothiazide while in the hospital. We will f ollow-up closely and titrate blood pressure medications. Continue with current management. Further recommendations based on the clinical course. Thank you for your consult. Time with Patient: Greater than 30
[2021-11-06] MEDS: LACTATED RINGERS 1,000 ML IV SCH (06:05)
[2021-11-06] MEDS: HYDROcodone/APAP 7.5-325MG 1 EACH TAB PO PRN (06:08)
[2021-11-06 07:10] VITALS: BP 154/71; PULSE 77; RESP 16; TEMP 98.7
--- NOTE | 2021-11-06 07:29 | P.PN ---
Progress Note - Text Progress Note Date: 11/06/21 POD 1 from TKR. ACC in place, ropivacaine running at 8cc. pain controlled. no lower ext weakness. pain 5/10 mostly posterior and laterally. continue for 3 days post op per instructions.
[2021-11-06] MEDS ORDERED: CALCIUM CARBONATE 500 MG CHEWABLE PO SCH (09:00)
[2021-11-06] MEDS ORDERED: MULTIVITAMINS, THERA 1 EACH TAB PO SCH (09:00)
[2021-11-06] MEDS: METOPROLOL SUCCINATE (ER) 50 MG TAB.ER.24H PO SCH (09:52)
[2021-11-06] MEDS: ASPIRIN 325 MG TAB PO SCH (09:52)
[2021-11-06] MEDS: BRIMONIDINE TARTRATE 0.2% DROPS 5 ML BTL RIGHT EYE SCH (09:55)
[2021-11-06 10:38] LABS: Basophils # (A) 0.01 X 10*3/uL (0.00-0.10); Basophils % (A) 0.1 %; Eosinophils # (A) 0.05 X 10*3/uL (0.04-0.35); Eosinophils % (A) 0.7 %; HCT 39.8 % (37.2-46.3); HGB 13.7 g/dL (12.0-15.0); Immature Grans, Automated 0.3 %; Lymphocytes # (A) 0.58 X 10*3/uL (0.90-5.00); MCH 32.4 pg (27.0-32.0); MCHC 34.4 g/dL (32.0-37.0); MCV 94.1 fL (80.0-97.0); Mean Platelet Volume 10.3 fL (9.5-12.2); Monocytes # (A) 0.77 X 10*3/uL (0.20-1.00); Monocytes % (A) 10.7 %; NRBC Per 100 WBC 0 /100 WBCS (0.0-0.0); Neutrophils # (A) 5.78 X 10*3/uL (1.80-7.70); Neutrophils % (A) 80.2 %; Platelet Count 201 X 10*3/uL (140-440); RBC 4.23 X 10*6/uL (4.10-5.20); RDW 12.8 % (11.5-14.5); WBC 7.21 X 10*3/uL (4.50-10.00)
[2021-11-06 10:58] LABS: African American GFR (CKD) 101.3 (60.0-200.0); Anion Gap 10.5 mmol/L (10.00-18.00); BUN/Creat Ratio 15.55 Ratio (12.00-20.00); Blood Urea Nitrogen 8.9 mg/dL (9.0-27.0); Calcium 8.2 mg/dL (8.7-10.3); Carbon Dioxide 26.8 mmol/L (20.0-27.5); Non-African American GFR(CKD) 87.4 (60.0-200.0); Potassium 3.5 mmol/L (3.5-5.5)
--- NOTE | 2021-11-06 11:02 | P.DS ---
Providers Expected date of discharge: 11/06/21 Attending physician: Judson Duncan Consults: 11/05/21 08:46 Consult Physician Routine Consulting Provider: Jaden Salinas Consult Reason/Comments: medical management Do you want consulting provider notified?: Yes Primary care physician: Shaun Bazzi - Discharge Diagnosis(es) (1) Osteoarthritis of left knee Current Visit: Yes Status: Acute (2) S/P total knee arthroplasty Current Visit: Yes Status: Acute Hospital Course: This is a 81-year-old female with known history of degenerative arthritis of the left knee. The patient presented for evaluation as an outpatient. After discussion and consideration patient elects to proceed with total knee arthroplasty. The patient is seen preoperatively by Dr. Duncan and medically cleared for surgery by their primary care physician. Patient is admitted to [facility] on 11/05/2021 for total knee arthroplasty. The procedure is performed without complication or sequelae. The patient is doing well postoperatively. Labs and vital signs are stable on day of discharge. On day of discharge patient's knee incision is healing well. There is minimal erythema. There is no drainage noted at this time. There is minimal soft tissue swelling to the knee. Patient has full foot and ankle motion without difficulty or pain. Calf is soft and nontender to palpation. Neurovascular status to the left lower extremity is intact. Patient is discharged home in good condition. Please see med rec for accurate list of home medications. Plan - Discharge Summary Discharge Rx Participant: No New Discharge Prescriptions: New Aspirin 325 mg PO BID #60 tab HYDROcodone/APAP 7.5-325MG [[place] 7.5-325] 1 - 2 tab PO Q6H PRN #32 tab PRN Reason: Pain Sennosides [Senokot] 2 tab PO DAILY PRN #60 tablet PRN Reason: Constipation No Action Multivitamins, Thera [Multivitamin (formulary)] 1 tab PO DAILY Metoprolol Succinate [Toprol Xl] 50 mg PO BID hydroCHLOROthiazide [Hydrodiuril] 50 mg PO DAILY Calcium Carbonate [Calcium] 600 mg PO DAILY Acetaminophen [Tylenol Extra Strength] 500 mg PO DAILY PRN PRN Reason: Pain Aspirin 81 mg PO DAILY Brimonidine Tartrate [Alphagan P 0.2% Ophth Soln] 1 drop RIGHT EYE TID Eo3 Eye Supplement 3 cap PO DAILY Discharge Medication List Acetaminophen [Tylenol Extra Strength] 500 mg PO DAILY PRN 11/11/18 [History] Calcium Carbonate [Calcium] 600 mg PO DAILY 11/11/18 [History] Metoprolol Succinate [Toprol Xl] 50 mg PO BID 11/11/18 [History] Multivitamins, Thera [Multivitamin (formulary)] 1 tab PO DAILY 11/11/18 [History] hydroCHLOROthiazide [Hydrodiuril] 50 mg PO DAILY 11/11/18 [History] Aspirin 81 mg PO DAILY 11/01/21 [History] Brimonidine Tartrate [Alphagan P 0.2% Ophth Soln] 1 drop RIGHT EYE TID 11/01/21 [History] Eo3 Eye Supplement 3 cap PO DAILY 11/01/21 [History] Aspirin 325 mg PO BID #60 tab 11/05/21 [Rx] HYDROcodone/APAP 7.5-325MG [[place] 7.5-325] 1 - 2 tab PO Q6H PRN #32 tab 11/05/21 [Rx] Sennosides [Senokot] 2 tab PO DAILY PRN #60 tablet 11/05/21 [Rx] Follow up Appointment(s)/Referral(s): [facility] [NON-STAFF] - As Needed (Continuous Passive Motion knee machine) [facility], [NON-STAFF] - As Needed Judson Duncan DO [Doctor of Osteopathic Medicine] - 2 Weeks Activity/Diet/Wound Care/Special Instructions: Weightbearing as tolerated with a walker. CPM 5-6h daily as tolerated. Leave dressing intact. Dressing may be removed by home care nurse or by patient in 7 days. Then change dressing twice daily until follow up. May shower with initial dressing intact and after removal. If dressing become saturated, please remove. Recommend use of compression stockings daily until follow up to help prevent swelling and blood clots. May remove at night before sleeping. Please take aspirin 325mg twice daily for 30 days to prevent blood clots. Please follow up with [facility] and call with any questions or concerns, . Discharge Disposition: HOME WITH HOME HEALTH SERVICES
[2021-11-06] MEDS ORDERED: POTASSIUM CHLORIDE ER 20 MEQ TAB.ER PO STA (12:23)
--- NOTE | 2021-11-06 12:27 | P.PN ---
Subjective Progress Note Date: 11/06/21 Patient is a 81-year-old female with a known history of hypertension, osteoarthritis, GERD, varicose veins, history of diverticulitis and previous history of smoking, macular degeneration admitted to hospital for elective left total knee arthroplasty. Patient tolerated the procedure very well. Pain is co ntrolled with nerve block. Denies any complaints of chest pain or shortness with. No headache or dizziness or lightheadedness. No fever no chills. On admission blood pressure was elevated to 192/93. Medicine service was consulted for evaluation. 11/06/2021 Patient is postoperative day #1 left total knee. Today she reports no pain, she is sitting up in chair. She denies chest pain, no shortness of breath. No acute events overnight. She will be discharged today by orthopedics and homecare and PT in the home is being set up. Blood pressure is improved today to 154/71. Lungs are clear, she is using IS. Has no had BM yet, states she is passing gas. Tolerating diet. Would recommend holding hydrodiuril until PCP follow up and give oral potassium supplement prior to discharge. Repeat labs in 2 to3 days and follow up with PCP. Review of Systems Constitutional: Denied any fatigue denied any fever. Cardio vascular: denied any chest pain, palpitations Gastrointestinal: denied any nausea, vomiting, diarrhea Pulmonary: Denied any shortness of breath cough Neurologic denied any new focal deficits All inpatient medications were reviewed and appropriate changes in these medications as dictated in the interval history and assessment and plan. PHYSICAL EXAMINATION: GENERAL: The patient is alert and oriented x3, not in any acute distress. Well developed, well nourished. HEENT: Pupils are round and equally reacting to light. EOMI. No scleral icterus. No conjunctival pallor. Normocephalic, atraumatic. No pharyngeal erythema. No thyromegaly. CARDIOVASCULAR: S1 and S2 present. No murmurs, rubs, or gallops. PULMONARY: Chest is clear to auscultation, no wheezing or crackles. ABDOMEN: Soft, nontender, nondistended, normoactive bowel sounds. No palpable organomegaly. MUSCULOSKELETAL: No joint swelling or deformity. Post surgical left knee dressing in tact EXTREMITIES: No cyanosis, clubbing, or pedal edema. NEUROLOGICAL: Gross neurological examination did not reveal any focal deficits. SKIN: No rashes. Assessment and Plan Assessment Status post left total knee arthroplasty postoperative day 1 Uncontrolled hypertension on admission. Controlled now Osteoarthritis GERD Macular degeneration History of lupus History of diverticulitis Previous history of smoking GI and DVT prophylaxis Plan: Encourage incentive spirometry and ambulation. Continue with metoprolol and h old hydrochlorothiazide recommend to repeat BMP in 2 to 3 days and follow up with PCP. Oral potassium supplementation ordered prior to discharge. Patient is cleared medically for discharge. Pain management and DVT prophylaxis as per primary. Thank you for your consult. The impression and plan of care has been dictated by Rain Mayer, Nurse Practitioner as directed. Dr. Lenin MD I have performed a history and physical examination and medical decision making of this patient, discussed the same with the dictator, and agree with the dictators assessment and plan as written, documented as a scribe. Based on total visit time, I have performed more than 50% of this visit. Objective - Vital Signs Vital signs: Vital Signs Temp 98.7 F 11/06/21 07:07 Pulse 77 11/06/21 07:07 Resp 16 11/06/21 07:07 BP 154/71 11/06/21 07:07 Pulse Ox 93 L 11/06/21 02:00 FiO2 Intake & Output 11/05/21 11/06/21 11/06/21 18:59 06:59 18:59 Intake Total 1151 340 Output Total 30 450 Balance 1121 -110 Weight 88.5 kg Intake: IV 1151 Intake, IV Titration 100 Amount ceFAZolin 1,000 mg In 100 Sodium Chloride 0.9% 50 ml @ 100 mls/hr IVPB Q8HR [facility] Rx#:[id number] Oral 240 Output: Urine 450 Estimated Blood Loss 30 Other: # Voids 1 1 - Labs CBC & Chem 7: 11/06/21 07:18 11/06/21 07:18 Labs: Abnormal Lab Results - Last 24 Hours (Table) 11/06/21 11/06/21 Range/Units 07:18 07:18 MCH 32.4 H (27.0-32.0) pg Lymphocytes # 0.58 L (0.90-5.00) X 10*3/uL BUN 8.9 L (9.0-27.0) mg/dL Glucose 112 H (70-110) mg/dL Calcium 8.2 L (8.7-10.3) mg/dL Assessment and Plan Time with Patient: Less than 30
== END 2021-11-06 12:51 | disposition home health service (06) ==
LOC: OR 05:35 → 4SSUR 08:39 → OR 11-06 12:51
PROVIDERS: ATTEND Orthopaedic Surgery
DX: M17.12 Unilateral primary osteoarthritis, left knee (principal); M25.762 Osteophyte, left knee; M21.162 Varus deformity, not elsewhere classified, left knee; G89.18 Other acute postprocedural pain; I10 Essential (primary) hypertension; H35.30 Unspecified macular degeneration; N39.0 Urinary tract infection, site not specified; H40.219 Acute angle-closure glaucoma, unspecified eye; Z68.33 Body mass index [BMI] 33.0-33.9, adult; Z87.891 Personal history of nicotine dependence; Z90.89 Acquired absence of other organs; Z90.49 Acquired absence of other specified parts of digestive tract; Z90.710 Acquired absence of both cervix and uterus; Z47.1 Aftercare following joint replacement surgery; Z96.642 Presence of left artificial hip joint; Z79.82 Long term (current) use of aspirin; Z90.3 Acquired absence of stomach [part of]
CPT/HCPCS: 27447; 97161; 64999; 64448; 76942; 80048; 85025; 88300; 73560; C1713; C1776; J2250; J1100; J0690 ×2; J2405; J3010; J1170; J2795